=== PATIENT | male | born 1955 | race Caucasian/White ===

== ENCOUNTER 2020-12-26 18:20 | Emergency (ER) | payer OTHER ==
[~2020-12-26] VITALS: Ht 182.9 cm; Wt 104.3 kg
[2020-12-26 20:01] LABS: HEMOGLOBIN 16.1 gm/dl (14.0-17.5); RED BLOOD COUNT 4.86 M/UL (4.20-5.50); WHITE BLOOD COUNT 5.4 K/UL (4.5-11.0)
[2020-12-26 20:28] LABS: BUN/CREATININE RATIO 5 (0-10)
[2020-12-27 01:23] LABS: BODY FLUID SOURCE PERITONEAL
[2020-12-27 01:24] LABS: MONONUCLEAR CELLS 97 (75-100); POLYMORPHONUCLEAR % 3 (0-25); RBC (AUTOMATED) 500 (0-100000); WBC (AUTOMATED) 211 (0-500)
[2020-12-27 08:18] LABS: LDH, BODY FLUID 48 U/L
[2020-12-27 12:02] LABS: HEMOGLOBIN 13.7 gm/dl (14.0-17.5); RED BLOOD COUNT 4.17 M/UL (4.20-5.50)
[2020-12-27 12:14] LABS: BUN/CREATININE RATIO 5 (0-10)
[2020-12-27 19:28] LABS: HEMOGLOBIN 13.5 gm/dl (14.0-17.5)
[2020-12-28 06:12] LABS: BUN/CREATININE RATIO 8 (0-10)
[2020-12-28 07:55] LABS: HEMOGLOBIN 13.2 gm/dl (14.0-17.5); RED BLOOD COUNT 4.07 M/UL (4.20-5.50); WHITE BLOOD COUNT 3.6 K/UL (4.5-11.0)
[2020-12-28] MEDS ORDERED: IBUPROFEN200 MG PO (16:15)
[2020-12-29 03:57] LABS: RED BLOOD COUNT 3.92 M/UL (4.20-5.50); WHITE BLOOD COUNT 4.1 K/UL (4.5-11.0)
[2020-12-29 04:18] LABS: BUN/CREATININE RATIO 8 (0-10)
[2020-12-29 06:12] LABS: HBSAG SCREEN Negative (Negative); HEP A AB, IGM Negative (Negative); HEP B CORE AB, IGM Negative (Negative); HEP C VIRUS AB >11.0 (0.0-0.9)
[2020-12-30 14:16] LABS: HEMOGLOBIN 13.8 gm/dl (14.0-17.5); RED BLOOD COUNT 4.2 M/UL (4.20-5.50); WHITE BLOOD COUNT 4.5 K/UL (4.5-11.0)
[2020-12-30 14:44] LABS: BUN/CREATININE RATIO 11 (0-10)
[2020-12-31 04:33] LABS: RED BLOOD COUNT 3.97 M/UL (4.20-5.50); WHITE BLOOD COUNT 4.4 K/UL (4.5-11.0)
[2020-12-31 04:50] LABS: BUN/CREATININE RATIO 9 (0-10)
[2021-01-01 04:01] LABS: RED BLOOD COUNT 3.95 M/UL (4.20-5.50); WHITE BLOOD COUNT 4.2 K/UL (4.5-11.0)
[2021-01-01 04:27] LABS: BUN/CREATININE RATIO 8 (0-10)
[2021-01-03 14:57] LABS: HEMOGLOBIN 14.3 gm/dl (14.0-17.5); RED BLOOD COUNT 4.31 M/UL (4.20-5.50)
[2021-01-03 15:15] LABS: BUN/CREATININE RATIO 9 (0-10)
[2021-01-04 03:17] LABS: HEMOGLOBIN 13.9 gm/dl (14.0-17.5); RED BLOOD COUNT 4.24 M/UL (4.20-5.50)
[2021-01-04 03:25] LABS: WHITE BLOOD COUNT 5.8 K/UL (4.5-11.0)
[2021-01-04 03:37] LABS: BUN/CREATININE RATIO 9 (0-10)
[2021-01-04] MEDS ORDERED: PROTONIX40 MG PO (21:58)
[2021-01-04] MEDS ORDERED: CONSTULOSE10 GM/15 M PO (21:58)
[2021-01-04] MEDS ORDERED: ENULOSE10 GM/15 M PO (21:59)
== END 2021-01-05 16:46 | disposition admitted as inpatient to this hospital (09) ==
LOC: ER1 18:20
PROVIDERS: Emergency Medicine; Internal Medicine; Physician Assistant; Physician Assistant Medical
DX: I85.00 Esophageal varices without bleeding (principal); K92.2 Gastrointestinal hemorrhage, unspecified; F10.239 Alcohol dependence with withdrawal, unspecified; K70.31 Alcoholic cirrhosis of liver with ascites; F10.229 Alcohol dependence with intoxication, unspecified; I10 Essential (primary) hypertension; Z20.822 Contact with and (suspected) exposure to COVID-19
CPT/HCPCS: 36415; 70450; 80053; 80074; 80307; 81001; 82140; 82272; 82550; 82553; 82945; 83605; 83615; 83690; 83735; 83880; 84157; 84484; 85014; 85018; 85025; 85027; 85610; 85652; 85730; 86140; 87070; 87205; 89051; 92610; 93005; 94664; 96374; 96375; 96376; 99285; C9113; G0480; J0696; J1940; J2060; J2354; J3411; J3475; J7030; Q9967; U0002

== ENCOUNTER 2021-01-05 10:01 | Inpatient (IN) | payer OTHER ==
[~2021-01-05] VITALS: Ht 182.9 cm; Wt 104.3 kg
[~2021-01-05 10:01] MED LIST: CONSTULOSE10 GM/15 M PO; ENULOSE10 GM/15 M PO; IBUPROFEN200 MG PO; PROTONIX40 MG PO
[2021-01-06 03:46] LABS: HEMOGLOBIN 13.4 gm/dl (14.0-17.5); RED BLOOD COUNT 4.03 M/UL (4.20-5.50); WHITE BLOOD COUNT 5.6 K/UL (4.5-11.0)
[2021-01-06 04:04] LABS: BUN/CREATININE RATIO 11 (0-10)
[2021-01-07 03:26] LABS: HEMOGLOBIN 12.2 gm/dl (14.0-17.5); RED BLOOD COUNT 3.75 M/UL (4.20-5.50); WHITE BLOOD COUNT 4.6 K/UL (4.5-11.0)
[2021-01-07 03:55] LABS: BUN/CREATININE RATIO 11 (0-10)
[2021-01-07 15:27] LABS: BODY FLUID SOURCE PERITONEAL
[2021-01-07 15:28] LABS: MONONUCLEAR CELLS 95.1 (75-100); POLYMORPHONUCLEAR % 4.9 (0-25); RBC (AUTOMATED) 200 (0-100000); WBC (AUTOMATED) 144 (0-500)
[2021-01-08 02:55] LABS: HEMOGLOBIN 12.7 gm/dl (14.0-17.5); RED BLOOD COUNT 3.86 M/UL (4.20-5.50)
[2021-01-08 03:20] LABS: BUN/CREATININE RATIO 9 (0-10)
[2021-01-09 04:04] LABS: HEMOGLOBIN 12.6 gm/dl (14.0-17.5); RED BLOOD COUNT 3.98 M/UL (4.20-5.50)
[2021-01-09 04:16] LABS: BUN/CREATININE RATIO 8 (0-10)
[2021-01-09 04:22] LABS: WHITE BLOOD COUNT 6.7 K/UL (4.5-11.0)
== END 2021-01-09 10:45 | disposition critical access hospital (66) | DRG 432 ==
LOC: CDU 10:01 → PROG CARE 10:01
PROVIDERS: ADMIT Internal Medicine
PROC: 0W9G3ZX Drainage of Peritoneal Cavity, Percutaneous Approach, Diagnostic (ICD-10-PCS; 2021-01-05)
PROC: BW40ZZZ Ultrasonography of Abdomen (ICD-10-PCS; 2021-01-05)
PROC: 0W9G3ZX Drainage of Peritoneal Cavity, Percutaneous Approach, Diagnostic (ICD-10-PCS; principal; 2021-01-07)
PROC: BW40ZZZ Ultrasonography of Abdomen (ICD-10-PCS; 2021-01-07)
DX: K70.31 Alcoholic cirrhosis of liver with ascites (principal); I85.11 Secondary esophageal varices with bleeding; G92 Toxic encephalopathy; K72.00 Acute and subacute hepatic failure without coma; D62 Acute posthemorrhagic anemia; D61.818 Other pancytopenia; F10.139 Alcohol abuse with withdrawal, unspecified; Z20.822 Contact with and (suspected) exposure to COVID-19; F10.10 Alcohol abuse, uncomplicated; I10 Essential (primary) hypertension; E87.5 Hyperkalemia; R13.10 Dysphagia, unspecified
CPT/HCPCS: 36415; 76705; 80053; 82140; 82550; 82553; 82945; 83735; 84132; 84157; 84484; 85027; 85610; 87070; 87205; 89051; 92526; 93005; 97110; 97110-GP-CQ; 97162; 97166; 97530; 97530-GP-CQ; C9113; J3475; P9047

== ENCOUNTER 2021-03-19 19:20 | Emergency (ER) | payer OTHER ==
[~2021-03-19 19:20] MED LIST changes: +K-DUR TAB 10 M10 MEQ PO; +LASIX40 MG PO
[2021-03-19 20:00] LABS: HEMOGLOBIN 15.8 gm/dl (14.0-17.5); RED BLOOD COUNT 4.73 M/UL (4.20-5.50); WHITE BLOOD COUNT 7.7 K/UL (4.5-11.0)
[2021-03-19 21:04] LABS: BUN/CREATININE RATIO 7 (0-10)
== END 2021-03-20 01:00 | disposition home or self-care (01) ==
LOC: ER1 19:20
PROVIDERS: Emergency Medicine
DX: K74.60 Unspecified cirrhosis of liver (principal); E87.1 Hypo-osmolality and hyponatremia
CPT/HCPCS: 80053; 85025; 85610; 99284

== ENCOUNTER → 2021-03-31 | Outpatient (CLI) | payer OTHER ==
[~2021-03-31] VITALS: Ht 182.9 cm; Wt 100.7 kg
[2021-03-31 13:35] LABS: HEMOGLOBIN 14.5 gm/dl (14.0-17.5); RED BLOOD COUNT 4.46 M/UL (4.20-5.50); WHITE BLOOD COUNT 4.8 K/UL (4.5-11.0)
[2021-03-31 14:03] LABS: BUN/CREATININE RATIO 11 (0-10)
== END ==
LOC: OPSV 11:52
PROVIDERS: Internal Medicine Gastroenterology
DX: K70.31 Alcoholic cirrhosis of liver with ascites (principal)
CPT/HCPCS: 36415; 80048; 85027; 96365; P9047

== ENCOUNTER → 2021-04-08 | Day surgery (SDC) | payer OTHER ==
[~2021-04-08] MED LIST changes: +ALDACTONE100 MG PO; +DIFLUCAN 100 M100 MG PO
[2021-04-08 10:17] LABS: BUN/CREATININE RATIO 8 (0-10)
== END | disposition home or self-care (01) ==
LOC: OR 06:11
PROVIDERS: Internal Medicine Gastroenterology
DX: B37.81 Candidal esophagitis (principal); K70.31 Alcoholic cirrhosis of liver with ascites; I85.10 Secondary esophageal varices without bleeding; K76.6 Portal hypertension; K31.89 Other diseases of stomach and duodenum; K29.80 Duodenitis without bleeding; E66.9 Obesity, unspecified; Z20.822 Contact with and (suspected) exposure to COVID-19
CPT/HCPCS: 80048; J2704; J7040

== ENCOUNTER → 2021-04-14 | Outpatient (CLI) | payer OTHER ==
[~2021-04-14] VITALS: Ht 182.9 cm; Wt 100.7 kg
[~2021-04-14] MED LIST changes: +AMOXICILLIN500 MG PO; +CLARITHROMYCIN500 MG PO; +PREVACID30 MG PO
[2021-04-14 11:57] LABS: BUN/CREATININE RATIO 9 (0-10)
== END ==
LOC: OPSV 10:00
PROVIDERS: Internal Medicine Gastroenterology
DX: K70.31 Alcoholic cirrhosis of liver with ascites (principal)
CPT/HCPCS: 36415; 80048

== ENCOUNTER 2021-04-16 00:14 | Inpatient (IN) | payer OTHER ==
[~2021-04-16] VITALS: Ht 182.9 cm; Wt 89.0 kg
[~2021-04-16 00:14] MED LIST changes: -AMOXICILLIN500 MG PO; -CLARITHROMYCIN500 MG PO; -PREVACID30 MG PO
[2021-04-16 00:46] LABS: HEMOGLOBIN 15.7 gm/dl (14.0-17.5); RED BLOOD COUNT 4.9 M/UL (4.20-5.50); WHITE BLOOD COUNT 7.3 K/UL (4.5-11.0)
[2021-04-16 00:58] LABS: BUN/CREATININE RATIO 7 (0-10)
[2021-04-16] MEDS ORDERED: CLARITHROMYCIN500 MG PO (11:10)
[2021-04-16] MEDS ORDERED: AMOXICILLIN500 MG PO (11:10)
[2021-04-16] MEDS ORDERED: PREVACID30 MG PO (11:11)
[2021-04-16 15:26] LABS: BODY FLUID SOURCE PLEURAL; MONONUCLEAR CELLS 8 (75-100); POLYMORPHONUCLEAR % 92 (0-25); RBC (AUTOMATED) 700 (0-100000); WBC (AUTOMATED) 257 (0-500)
[2021-04-16 15:45] LABS: LDH, BODY FLUID 62 U/L; TOTAL PROTEIN, BODY FLUID 1.9 gm/dL
[2021-04-17 06:14] LABS: HEMOGLOBIN 13.3 gm/dl (14.0-17.5); RED BLOOD COUNT 4.12 M/UL (4.20-5.50); WHITE BLOOD COUNT 5.3 K/UL (4.5-11.0)
[2021-04-17 06:28] LABS: BUN/CREATININE RATIO 8 (0-10)
--- NOTE | 2021-04-17 19:11 | NUR ---
PT'S DRAIN TO RIGHT UPPER BACK HAS COME OUT AND PULMONOLOGY AT THE BEDSIDE REDRESSED. BAG NOTED WITH 200.
[2021-04-18 07:10] LABS: HEMOGLOBIN 13.7 gm/dl (14.0-17.5); RED BLOOD COUNT 4.24 M/UL (4.20-5.50); WHITE BLOOD COUNT 5.1 K/UL (4.5-11.0)
[2021-04-18 07:30] LABS: BUN/CREATININE RATIO 8 (0-10)
[2021-04-19 09:31] LABS: HEMOGLOBIN 13.2 gm/dl (14.0-17.5); RED BLOOD COUNT 4.15 M/UL (4.20-5.50); WHITE BLOOD COUNT 4.8 K/UL (4.5-11.0)
[2021-04-19 09:48] LABS: BUN/CREATININE RATIO 7 (0-10)
[2021-04-19] MEDS ORDERED: FUROSEMIDE40 MG PO (12:24)
--- NOTE | 2021-04-19 13:31 | NUR ---
COULD NOT FIND CIWA PROTOCOL ORDER. PROVIDER GAVE VERBAL ORDER TO DC CIWA PATIENT HAD SCORED 0'S FOR 72 HOURS. [facility]WA DC'D PER PROVIDER ORDER. WILL CONTINUE TO MONITOR.
== END 2021-04-19 16:22 | disposition home or self-care (01) | DRG 432 ==
LOC: ER1 00:14 → CDU 04:23 → PROG CARE 08:47 → MED SURG 4 15:36
PROVIDERS: Emergency Medicine; Internal Medicine; Physician Assistant Medical; ADMIT Internal Medicine
PROC: HZ2ZZZZ Detoxification Services for Substance Abuse Treatment (ICD-10-PCS; principal; 2021-04-16)
PROC: 0W993ZZ Drainage of Right Pleural Cavity, Percutaneous Approach (ICD-10-PCS; 2021-04-16)
DX: K70.31 Alcoholic cirrhosis of liver with ascites (principal); J96.01 Acute respiratory failure with hypoxia; E87.2 Acidosis; K76.6 Portal hypertension; J98.11 Atelectasis; J91.8 Pleural effusion in other conditions classified elsewhere; Z20.822 Contact with and (suspected) exposure to COVID-19; I10 Essential (primary) hypertension; F10.10 Alcohol abuse, uncomplicated; Y90.9 Presence of alcohol in blood, level not specified; B96.81 Helicobacter pylori [H. pylori] as the cause of diseases classified elsewhere; K20.90 Esophagitis, unspecified without bleeding; Z98.890 Other specified postprocedural states; Z79.01 Long term (current) use of anticoagulants; Z79.899 Other long term (current) drug therapy
CPT/HCPCS: 36415; 71045; 80048; 80053; 82550; 82553; 83605; 83615; 83735; 83874; 83880; 83986; 84100; 84155; 84157; 84484; 85025; 85027; 85610; 85730; 86140; 87015; 87040; 87070; 87116; 87205; 89051; 93005; 99285; C1729; J1940; J2270; J2405; J7030; Q9967; U0002

== ENCOUNTER → 2021-05-13 | Outpatient (CLI) | payer OTHER ==
[~2021-05-13] MED LIST changes: +AMOXICILLIN500 MG PO; +CLARITHROMYCIN500 MG PO; +FUROSEMIDE40 MG PO; +PREVACID30 MG PO
== END ==
LOC: OPSV 09:46
DX: K74.60 Unspecified cirrhosis of liver (principal); R18.8 Other ascites; J90 Pleural effusion, not elsewhere classified
CPT/HCPCS: G0463

== ENCOUNTER → 2021-06-18 | Outpatient (CLI) | payer OTHER ==
[~2021-06-18] VITALS: Ht 182.9 cm; Wt 100.7 kg
[2021-06-18 11:17] LABS: BUN/CREATININE RATIO 7 (0-10)
== END ==
LOC: OPSV 10:00
PROVIDERS: Internal Medicine Gastroenterology
PROC: 0W9G3ZZ Drainage of Peritoneal Cavity, Percutaneous Approach (ICD-10-PCS; principal; 2021-06-18)
DX: K70.31 Alcoholic cirrhosis of liver with ascites (principal); Z79.899 Other long term (current) drug therapy
CPT/HCPCS: 36415; 80048

== ENCOUNTER → 2021-09-06 | Outpatient (CLI) | payer OTHER | LOC: KOH-I 15:16 | DX: M54.50 Low back pain, unspecified (principal); M25.551 Pain in right hip; M47.816 Spondylosis without myelopathy or radiculopathy, lumbar region; M16.11 Unilateral primary osteoarthritis, right hip | CPT/HCPCS: 72100; 73502 ==